=== PATIENT | female | born 1935 | race Caucasian/White ===

== ENCOUNTER 2020-03-07 10:09 | Emergency (ER) | payer MEDICARE ==
--- NOTE | 2020-03-07 11:22 | EDM.PDOC ---
ED HPI GENERAL MEDICAL PROBLEM - General Chief Complaint: Skin Complaint Stated Complaint: CUT R ANKLE Time Seen by Provider: 03/07/20 11:03 Source of Information: Reports: Patient History Limitations: Reports: No Limitations - History of Present Illness INITIAL COMMENTS - FREE TEXT/NARRATIVE: 84-year-old female who is anticoagulated with warfarin for atrial fibrillation and CVA presents to the emergency department with a skin tear on the back of the right lower extremity. The incident happened a couple days ago when she brushed against a sharp object. She contacted her primary care provider, a [facility] in [place], who has wound care experience and he recommended triple antibiotic ointment and a dressing. He told her stop her Coumadin. The patient is here for evaluation of the wound as well as a check of an INR. Patient denies any other problems. She has no systemic symptoms. Specifically she denies fever or pain. - Related Data Allergies Allergy/AdvReac Type Severity Reaction Status Date / Time lisinopril Allergy Swollen Verified 03/07/20 10:42 Tongue Home Meds: Home Meds ALPRAZolam [Alprazolam Odt] 0.25 mg PO BEDTIME 03/07/20 [History] Albuterol Sulfate [Proair Hfa] 8.5 gm IH Q4HR PRN 03/07/20 [History] Fluticasone Propion/Salmeterol [Advair 250-50 Diskus] 1 each IH DAILY 03/07/20 [History] Furosemide [Lasix] 20 mg PO DAILY 03/07/20 [History] Metoprolol 25mg 25 mg PO DAILY 03/07/20 [History] Pantoprazole [ProTONIX Granules] 40 mg PO DAILY 03/07/20 [History] Potassium Chloride [Klor-Con] 20 meq PO DAILY 03/07/20 [History] Warfarin [Coumadin] 3 mg PO DAILY 03/07/20 [History] amLODIPine [Norvasc] 10 mg PO DAILY 03/07/20 [History] Past Medical History HEENT History: Reports: Cataract, Impaired Vision, Macular Degeneration Cardiovascular History: Reports: Arrhythmia, Hypertension Respiratory History: Reports: COPD Gastrointestinal History: Reports: None Genitourinary History: Reports: Renal Calculus 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: Musculoskeletal History: Reports: Fracture Neurological History: Reports: CVA, Migraines, TIA Psychiatric History: Reports: None Endocrine/Metabolic History: Reports: None Oncologic (Cancer) History: Reports: Basal Cell Carcinoma - Infectious Disease History Infectious Disease History: Reports: Chicken Pox, Measles, Mumps - Past Surgical History HEENT Surgical History: Reports: Adenoidectomy, Cataract Surgery, Tonsillectomy Cardiovascular Surgical History: Reports: None Female Surgical History: Reports: None Musculoskeletal Surgical History: Reports: Hip Replacement Social & Family History - Tobacco Use Smoking Status *Q: Former Smoker Used Tobacco, but Quit: Yes Month/Year Tobacco Last Used: 10 years - Caffeine Use Caffeine Use: Reports: Coffee - Recreational Drug Use Recreational Drug Use: No ED ROS GENERAL - Review of Systems Review Of Systems: See Below Constitutional: Denies: Fever, Chills, Weakness Musculoskeletal: Reports: No Symptoms Skin: Reports: Wound Neurological: Reports: No Symptoms ED EXAM, SKIN/RASH Exam: See Below Exam Limited By: No Limitations General Appearance: Alert, WD/WN, No Apparent Distress Peripheral Pulses: 2+: Dorsalis Pedis (L), Dorsalis Pedis (R) Extremities: Other (He has a skin tear in the posterior aspect the right lower leg. It is superficial no tendons were injured. Neurovascular exam is normal. No signs of infection.) Skin: Other (Skin tear posterior right lower leg) Course - Vital Signs Text/Narrative:: This 84-year-old female who is anticoagulated with warfarin as a skin tear on the posterior aspect of the right lower leg. It was inspected and there is no evidence of infection. The bleeding was well controlled. Her vital signs are stable. She has a normal hemoglobin. Her INR is still supratherapeutic at 3.3. The wound was dressed with antibiotic ointment, Adaptic, Telfa and a Akash wrap. She will change the dressing every day. She will have her INR checked again on Saturday or and then call the results to her primary care provider in [place]. He can give her instructions regarding warfarin dosage. The patient is going home to [place] on Saturday. She can return here if she has any increased problems or concerns. She and her son agreed with this plan. She was discharged from the ED. Last Recorded V/S: Last Vital Signs Temp 36.6 C 03/07/20 10:41 Pulse 84 03/07/20 10:41 Resp 18 03/07/20 10:41 BP 110/58 L 03/07/20 10:41 Pulse Ox 94 L 03/07/20 10:41 - Orders/Labs/Meds Labs: Laboratory Tests 03/07/20 03/07/20 Range/Units 11:25 11:25 WBC 11.8 H (4.5-11.0) K/uL RBC 3.38 (3.30-5.50) M/uL Hgb 10.1 L (12.0-15.0) g/dL Hct 32.2 L (36.0-48.0) % MCV 95 (80-98) fL MCH 30 (27-31) pg MCHC 31 L (32-36) % Plt Count 435 H (150-400) K/uL Neut % (Auto) 73 H (36-66) % Lymph % (Auto) 19 L (24-44) % [place] % (Auto) 7 H (2-6) % Eos % (Auto) 1 L (2-4) % Baso % (Auto) 0 (0-1) % PT 35.2 H (9.5-12.0) sec INR 3.31 H (0.80-1.20) Meds: Medications Discontinued Medications Generic Name Dose Route Start Last Admin Trade Name Freq PRN Reason Stop Dose Admin Bacitracin 1 dose 03/07/20 11:28 03/07/20 11:43 Bacitracin Oint 1 Gm TOP 03/07/20 11:29 1 dose ONETIME ONE Administration Departure - Departure Time of Disposition: 11:51 Disposition: Home, Self-Care 01 Condition: Good Clinical Impression: Skin tear, Supratherapeutic INR - Discharge Information Referrals: PCP,None [Primary Care Provider] - Forms: ED Department Discharge Additional Instructions: Change the dressing daily. Check your INR on Saturday or of this week in the clinic and contact your primary care provider for directions regarding the warfarin dose. Hold warfarin until that time. Return to the ER as needed for problems or concerns. Sepsis Event Note (ED) - Evaluation Sepsis Screening Result: No Definite Risk - Focused Exam Vital Signs: Vital Signs Temp Pulse Resp BP Pulse Ox 03/07/20 10:41 36.6 C 84 18 110/58 L 94 L 03/07/20 10:28 36.6 C 84 18 110/58 L 94 L
[2020-03-07] MEDS ORDERED: Bacitracin Oint 1 GM U/D Packet TOP ONE (11:28)
== END 2020-03-07 12:26 | disposition home or self-care (01) ==
LOC: JP.ED 10:09
DX: S81.811A Laceration without foreign body, right lower leg, initial encounter (principal); R79.1 Abnormal coagulation profile; I10 Essential (primary) hypertension; J44.9 Chronic obstructive pulmonary disease, unspecified; I48.91 Unspecified atrial fibrillation; Z86.73 Personal history of transient ischemic attack (TIA), and cerebral infarction without residual deficits; Z87.891 Personal history of nicotine dependence; Z88.8 Allergy status to other drugs, medicaments and biological substances; Z79.01 Long term (current) use of anticoagulants; Z79.899 Other long term (current) drug therapy; W26.8XXA Contact with other sharp object(s), not elsewhere classified, initial encounter
CPT/HCPCS: 36415; 85025; 85610; 99283